=== PATIENT | female | born 1990 | race Caucasian/White ===

== ENCOUNTER 2019-04-21 17:15 | Emergency (ER) | payer OTHER ==
[~2019-04-21] VITALS: Ht 172.7 cm; Wt 56.7 kg
[2019-04-21] MEDS ORDERED: LOESTRIN FE 1-1 EACH PO (17:27)
[2019-04-21] MEDS ORDERED: IBUPROFEN 800800 M1 PO (19:17)
[2019-04-21] MEDS ORDERED: FLEXERIL PO (19:17)
[2019-04-21 19:33] VITALS: BP 116/71
== END 2019-04-21 19:34 | disposition home or self-care (01) ==
LOC: M.ERS 17:15
DX: S00.83XA Contusion of other part of head, initial encounter (principal); S80.01XA Contusion of right knee, initial encounter; M53.3 Sacrococcygeal disorders, not elsewhere classified; F17.200 Nicotine dependence, unspecified, uncomplicated; Z88.2 Allergy status to sulfonamides; V89.2XXA Person injured in unspecified motor-vehicle accident, traffic, initial encounter; Y93.89 Activity, other specified; Y92.89 Other specified places as the place of occurrence of the external cause; Y99.8 Other external cause status